=== PATIENT | male | born 1970 | race Caucasian/White ===

== ENCOUNTER 2020-10-23 20:48 | Emergency (ER) | payer BC, SELFPAY ==
--- NOTE | ~2020-10-23 | XR_ITS ---
EXAMINATION: XR chest 1V portable EXAM DATE: 10/23/2020 21:21 INDICATION: Mid chest pain. TECHNIQUE: Frontal projection of the chest obtained and reviewed. Comparison is made to prior examina tion from 09/09/2009. FINDINGS: The lungs are clear. There are no pleural effusions. The cardiomediastinal silhouette is within normal limits. There is no pneumothorax suspected. The bones and soft tissues are unremarkab le. IMPRESSION: No acute cardiopulmonary findings. Reviewed, dictated and finalized at location A[facility]
[2020-10-23 20:58] VITALS: BP 140/86; PULSE 85; RESP 15; TEMP 37; O2SAT 100
--- NOTE | 2020-10-23 21:03 | ECG_ITS ---
Measurements Intervals [place] Rate: 79 P: 35 OK: 186 QRS: -41 QRSD: 115 T: 35 QT: 371 QTc: 427 Interpretive Statements SINUS RHYTHM LEFT AXIS DEVIATION INCOMPLETE RIGHT BUNDLE BRANCH BLOCK BASELINE ARTIFACT- I, II, III, AVR, V2-V3 BORDERLINE ECG Electronically Signed On 10-24-2020 7:08:35 [employer] by Gokul Sepulveda D.O.
[2020-10-23] MEDS: ASPIRIN 81 MG CHEWABLE TABLET 324 MG PO (21:09)
[2020-10-23 21:23] VITALS: BP 143/94; PULSE 85; RESP 19; O2SAT 99
[2020-10-23 21:33] LABS: Basophils Percent Auto 0.2 % (0.2-1.2); Eosinophils Percent Auto 0.4 % (0-4.4); Hematocrit 42.6 % (42.0-52.0); Hemoglobin 14.5 g/dL (14.0-18.0); Immature Granulocyte Absolute 0.01 K/mm3 (0.00-0.031); Immature Granulocyte Percent A 0.2 % (0-0.5); Lymphocytes Absolute Auto 1.09 K/mm3 (0.9-3.2); Lymphocytes Percent Auto 23.3 % (18.3-44.2); Mean Corpuscular Hemoglobin 30.7 pg (26-34); Mean Corpuscular Volume 90.1 fl (80-100); Mean Platelet Volume 9.5 fl (7.4-10.4); Monocytes Absolute Auto 0.5 K/mm3 (0.1-0.6); Monocytes Percent Auto 11.5 % (2.6-8.5); Neutrophils Percent Auto 64.4 % (45.5-73.1); Platelet Count Result 194 k/mm3 (150-375); Red Blood Count 4.73 M/mm3 (4.6-6.20); Red Cell Distribution Width 11.9 % (11.5-14.5); White Blood Count 4.7 K/mm3 (4.5-10.0)
--- NOTE | 2020-10-23 21:40 | ED.CHESTPAIN ---
HPI - Chest Pain General Chief Complaint: Chest Pain Stated Complaint: COVID+ FEVER CHEST TIGHTNESS Time Seen by Provider: 10/23/20 21:05 History of Present Illness HPI narrative: Patient is a 50-year-old male who presents ER with central chest pain. Its in the lower chest and reproducible with palpation of the left pectoralis. It also feels like acid reflux which was not relieved by famotidine. No previous history of chest pain or cardiac issues. Patient recently tested positive for COVID-19. Concerned maybe he could be developing pneumonia. Noticed that his temperature got up to 99 ?F which is the highest it has been for him. He has not had any productive cough or shortness of breath. No sinus congestion or sore throat. Unknown how he contracted the disease. Related Data Home Medications Medication Instructions Recorded Confirmed calcium polycarbophil [FiberCon] 1,250 mg PO DAILY 10/23/20 famotidine 20 mg PO BID 10/23/20 pravastatin 10/23/20 Allergies Allergy/AdvReac Type Severity Reaction Status Date / Time No Known Allergies Allergy Mild Verified 10/23/20 21:24 Review of Systems Review of Systems: All systems reviewed & are unremarkable except as noted in HPI and below Constitutional: Constitutional: Denies chills, Reports fever(s) and Denies weakness ENT: Denies nasal congestion and Denies sore throat Cardiovascular: Cardiovascular: Reports chest pain and Denies radiating jaw, neck or arm pain Respiratory: Respiratory: Denies cough, Denies dyspnea and Denies wheezing Gastrointestinal: Gastrointestinal: Denies abdominal pain, Denies nausea and Denies vomiting Musculoskeletal: Musculoskeletal: Denies back pain and Denies muscle cramps PMFSH Past Medical History Medical History (Updated 10/24/20 @ 01:11 by Mauro Black MD) GERD (gastroesophageal reflux disease) Hypercholesterolemia Surgical History Surgical History (Updated 10/23/20 @ 21:44 by Mauro Black MD) No history of previous surgery Social History Social History (Updated 10/23/20 @ 21:44 by Mauro Black MD) Social History: rare etoh Exam Narrative: Exam Narrative: GENERAL: Well-appearing, well-nourished, and in no acute distress. HEAD: Normocephalic, atraumatic. EYES: PERRL and EOMI. CHEST: Clear to auscultation. No respiratory distress. TTP left anterior chest wall. HEART: Regular rate and rhythm. Normal peripheral pulses. ABDOMEN: Soft, nontender, nondistended. EXTREMITIES: Normal range of motion. No edema. SKIN: Warm, dry, no rash. NEURO: Alert and oriented x3. Course Vital Signs Vital signs: Vital Signs Temperature 98.6 F 10/23/20 20:58 Pulse Rate 85 10/23/20 20:58 Respiratory Rate 15 10/23/20 20:58 Blood Pressure 140/86 10/23/20 20:58 Pulse Oximetry 100 10/23/20 20:58 Temperature 98.6 F 10/23/20 20:58 Pulse Rate 85 10/23/20 21:23 Respiratory Rate 19 10/23/20 21:23 Blood Pressure 143/94 H 10/23/20 21:23 Pulse Oximetry 99 10/23/20 21:23 MDM - Chest Pain Lab Data Result diagrams: 10/23/20 21:21 10/23/20 21:21 Labs: Lab Results 10/23/20 10/23/20 10/23/20 Range/Units 21:21 21:21 21:21 WBC 4.7 (4.5-10.0) K/mm3 RBC 4.73 (4.6-6.20) M/mm3 Hgb 14.5 (14.0-18.0) g/dL Hct 42.6 (42.0-52.0) % MCV 90.1 (80-100) fl MCH 30.7 (26-34) pg MCHC 34.0 (32-36) g/dl RDW 11.9 (11.5-14.5) % Plt Count 194 (150-375) k/mm3 MPV 9.5 (7.4-10.4) fl Immature Gran % (Auto) 0.2 (0-0.5) % Neut % (Auto) 64.4 (45.5-73.1) % Lymph % (Auto) 23.3 (18.3-44.2) % Leslie % (Auto) 11.5 H (2.6-8.5) % Eos % (Auto) 0.4 (0-4.4) % Baso % (Auto) 0.2 (0.2-1.2) % Lymph # (Auto) 1.09 (0.9-3.2) K/mm3 Leslie # (Auto) 0.5 (0.1-0.6) K/mm3 Eos # (Auto) 0.0 (0-0.3) K/mm3 Baso # (Auto) 0.0 (0.0-0.1) K/mm3 Abs Immat Gran (auto) 0.01 (0.00-0.031) K/mm3 Absolute
[2020-10-23 21:43] LABS: INR 0.9; Prothrombin Time 12.7 Seconds (11.1-14.7)
[2020-10-23 21:44] LABS: Partial Thromboplastin Time 25.8 SECONDS (22.3-36.8)
[2020-10-23 21:45] LABS: Anion Gap 5 mmol/L (8-16); Blood Urea Nitrogen 18 mg/dL (9-20); Calcium 8.8 mg/dL (8.4-10.2); Carbon Dioxide 29 mmol/L (22-30); Chloride 101 mmol/L (98-107); Estimated CRCL calculation 110 ml/min; Estimated Glomerular Filt Rate > 60; Glucose 95 mg/dL (75-110); Potassium 4.5 mmol/L (3.4-5.0); Sodium 135 mmol/L (137-145)
[2020-10-23] MEDS: BELLADONNA ALK/PHENOB ELIX 10 ML, MAG HYDROX/ALUMINUM HYD/SIMETH 30 ML, LIDOCAINE HCL 2... PO (21:55)
[2020-10-23 21:57] LABS: Troponin I < 0.012 ng/mL (0.000-0.034)
[2020-10-23 23:30] VITALS: BP 135/88; PULSE 68; RESP 14; O2SAT 97
[2020-10-24 00:52] LABS: Troponin I < 0.012 ng/mL (0.000-0.034)
[2020-10-24 01:28] VITALS: BP 132/87; PULSE 72; RESP 18; O2SAT 97
== END 2020-10-24 01:29 | disposition home or self-care (01) ==
PROVIDERS: Emergency Provider Emergency Medicine
DX: U07.1 COVID-19 (principal); R07.9 Chest pain, unspecified; K21.9 Gastro-esophageal reflux disease without esophagitis; E78.00 Pure hypercholesterolemia, unspecified; I45.10 Unspecified right bundle-branch block
CPT/HCPCS: 36415; 71045; 80048; 84484; 85025; 85610; 85730; 93005; 99284; A9270